=== PATIENT | male | born 1970 | race Caucasian/White ===

== ENCOUNTER 2016-11-06 23:35 | Emergency (ER) | payer SELFPAY | END 2016-11-07 00:59 | disposition left against medical advice (07) | LOC: D.ER 23:35 | DX: F15.10 Other stimulant abuse, uncomplicated (principal); F17.200 Nicotine dependence, unspecified, uncomplicated ==

== ENCOUNTER 2017-01-15 19:08 | Emergency (ER) | payer SELFPAY ==
[2017-01-15 19:40] LABS: APPEARANCE CLEAR (CLEAR); BILIRUBIN NEGATIVE (NEGATIVE); COLOR YELLOW (YELLOW); GLUCOSE NEGATIVE (NEGATIVE); KETONE NEGATIVE (NEGATIVE); LEUKOCYTE ESTERASE NEGATIVE (NEGATIVE); NITRITE NEGATIVE (NEGATIVE); PROTEIN NEGATIVE (NEGATIVE); SPECIFIC GRAVITY 1.025 (1.005-1.020); UROBILINOGEN NORMAL (NORMAL)
[2017-01-15 21:27] LABS: UDS - AMPHET POSITIVE QUAL (NEGATIVE); UDS - BARB NEGATIVE QUAL (NEGATIVE); UDS - BENZO NEGATIVE QUAL (NEGATIVE); UDS - COCAINE NEGATIVE QUAL (NEGATIVE); UDS - METH NEGATIVE QUAL (NEGATIVE); UDS - OPIATE NEGATIVE QUAL (NEGATIVE); UDS - PCP NEGATIVE QUAL (NEGATIVE); UDS - THC NEGATIVE QUAL (NEGATIVE)
== END 2017-01-15 21:29 | disposition home or self-care (01) ==
LOC: D.LABREF 19:08 → D.ER 19:08
PROVIDERS: Emergency Medicine; Nurse Practitioner Acute Care
DX: F11.10 Opioid abuse, uncomplicated (principal); F15.10 Other stimulant abuse, uncomplicated; F17.200 Nicotine dependence, unspecified, uncomplicated

== ENCOUNTER 2017-02-01 20:08 | Observation (INO) | payer SELFPAY ==
[2017-02-01 22:03] LABS: APPEARANCE CLEAR (CLEAR); BILIRUBIN NEGATIVE (NEGATIVE); COLOR YELLOW (YELLOW); GLUCOSE NEGATIVE (NEGATIVE); KETONE NEGATIVE (NEGATIVE); NITRITE NEGATIVE (NEGATIVE); PROTEIN NEGATIVE (NEGATIVE); UROBILINOGEN NORMAL (NORMAL)
[2017-02-01 22:40] LABS: BASOPHILS 0.3 % (0-2); EOSINOPHILS 3.5 % (0-7); HEMATOCRIT 44.5 % (42.0-54.0); HEMOGLOBIN 14.9 g/dL (13.5-17.5); IMMATURE GRANULOCYTES 1.7 % (0-5); LYMPHOCYTES 33.5 % (15-50); MCH 30.4 pg (26.0-34.0); MCHC 33.5 g/dL (31.0-37.0); MCV 90.8 fL (80.0-100.0); MEAN PLATELET VOLUME 8.8 fL (7.4-10.4); MONOCYTES 10.1 % (2-11); NEUTROPHILS 50.9 % (40-80); PLATELET COUNT 380 10x3/uL (130-400); RDW 14.4 % (11.5-14.5); WBC 7.1 10x3/uL (4.8-10.8)
--- NOTE | 2017-02-01 22:40 | NUR ---
PT ARRIVED TO ROOM 212 FROM ER PER WHEELCHAIR. ALERT/ORIENTED. ACCOMPANIED BY GIRLFRIEND. PIV TO [facility] SALINE LOCKED. ADMISSION ASSESSMENT AND HISTORY COMPLETED. NO CURRENT HOME MEDS, HAS BEEN ON A DETOX PROGRAM AT [facility] FOR THE LAST 4 DAYS AND STATES HE HAS BEEN HAVING SEIZURES FOR OVER A MONTH. SEIZURE PRECAUTIONS IN PLACE. SIDERAILS PADDED. PLAN OF CARE INITIATED.
[2017-02-01 22:56] LABS: ALBUMIN 3.5 g/dL (3.4-5.0); BILIRUBIN - TOTAL 0.1 mg/dL (0.2-1.3); CALCIUM 8.9 mg/dL (8.5-10.1); CREATININE - SERUM 1.4 mg/dL (0.6-1.3); MAGNESIUM - SERUM 1.8 mg/dL (1.8-2.4); PROTEIN - SERUM 7.2 g/dL (6.4-8.2)
[2017-02-01 23:08] LABS: APTT 27.3 SECONDS (22.8-39.4); INR 0.85 (0.85-1.17); PROTIME 11.4 SECONDS (11.6-15.0)
[2017-02-02] VITALS: BP 138/89
--- NOTE | 2017-02-02 02:07 | NUR ---
PT'S GIRLFRIEND AT NURSES STATION, THEN DOWN TO PATIENT'S @ 0110 WHERE SHE IMMEDIATELY REAPPEARED IN THE HALLWAY YELLING "HE JUST HAD A SEIZURE!" WENT TO PT ROOM AND PT IS FULLY AWAKE AND STRETCHED OUT HIS RIGHT ARM WHERE HIS IV IS LOCATED AND SAID "SHOULDN'T YOU GIVE ME ATIVAN NOW?". NO EVIDENCE OF POST ICTAL PRESENT. PT IS ALERT/ORIENTED AND JUST WANTING TO KNOW WHERE HIS ATIVAN IS AT. NURSE DOWN TO GET A DOSE OF ATIVAN AND UPON RETURNING TO ROOM, PT IS UP IN BATHROOM. GAIT IS STEADY AND UNASSISTED. HE APPEARS TO HAVE NO LINGERING EFFECTS FROM HIS REPORTED SEIZURE. PT READYING SELF FOR SLEEP, TELLS NURSE IF A "BALD HEADED CAROL COMES LOOKING FOR ME, JUST SEND HIM MY WAY". WHEN NURSE ATTEMPTED TO ASK HIM QUESTIONS ON WHY HE WOULD MAKE THAT STATEMENT, HIS GIRLFRIEND TOLD HIM TO BE QUIET AND TO STOP TALKING. PT JUST LAUGHED. WILL MONITOR.
[2017-02-02 02:52] VITALS: BP 138/89; BMI 30.2
--- NOTE | 2017-02-02 03:00 | NUR ---
PT OUT WALKING IN THE HALLWAY. ALERT/ORIENTED. GAIT STEADY AND UNASSISTED. REQUESTED TO KNOW WHERE VENDING MACHING LOCATED. DIRECTED PT TO MACHINES. PT THEN BACK TO ROOM. WILL MONITOR.
[2017-02-02 04:00] VITALS: BP 134/79
--- NOTE | 2017-02-02 04:03 | NUR ---
PT'S GIRLFRIEND, CHALO LINARES, UP TO NURSES STATION TELLING NURSE PT IS AGITATED AND "ALL OVER THE BED" AND WASN'T NURSE SUPPOSED TO BE STARTING A "DRIP" ON HIM. EXPLAINED THAT THERE WAS NOT ANY ORDERS FOR PT TO BE ON A DRIP AND THAT PT HAD BEEN UP AND WALKING IN THE HALLWAY LESS THAN AN HOUR AGO WITH NO ISSUES. GIRLFRIEND IMMEDIATELY SAID "WELL CAN HE HAVE ICECREAM THEN?". GAVE HER 2 CUPS OF ICECREAM AND SHE RETURNED TO ROOM.
--- NOTE | 2017-02-02 07:15 | NUR ---
RECIEVED REPORT ON PATIENT, PATIENT IS ALERT AND ORIENTED AT THIS TIME. PATIENT HAS A R FA IV THAT IS SL AT THIS TIME. PATIENT IS ON TELEMETRY AND IS SR WITH A RATE OF 87. PATIENT GIRLFRIEND IS AT BEDSIDE. PATIENT IS ON SZ PRECAUTIONS, BEDRAILS ARE PADDED, BED LOW AND LOCKED, CALL LIGHT IN REACH. PATIENT IS AGGITATED WANTING TO GO OUTSIDE TO SMOKE, [employer] TE[employer]ER IS AT BEDSIDE EXPLAINING TO PATIENT HE CAN NOT LEAVE THE FLOOR, SINCE HE IS ON SIEZURE PRECAUTIONS. I HAVE PAGED MARKEL KHANNA FOR NICOTINE PATCH. CPOC
--- NOTE | 2017-02-02 07:55 | NUR ---
PT AMBULATING AROUND UNIT BUT ALSO LOOKING FOR ELEVATOR WITH CIGARETTES IN HAND LOOKING TO GO OUTSIDE TO SMOKE. PT AMULATING BACK TO ROOM. EXPLAINED TO PT AND GIRLFRIEND THAT HE IS UNDER SEIZURE PRECAUTIONS AND CANNOT LEAVE THE FLOOR AND PREFERABLY THE ROOM FOR HIS SAFETY. BOTH UNDERSATND BUT PT IS NONCOMPLIANT AND WANTING TO SMOKE. HE WAS OFFERED A NICOTINE PATCH BUT REFUSES IT. HE IS ALSO WANTING TO TRANSFER TO [facility]. PROCEDURE OF TRANSFER WAS EXPLAINED TO PT. PT STATES HE DID [facility] 5 DAYS AGO. AGAIN, THE IMPORTANCE OF STAYING IN THE ROOM AND THE UNIT WAS STRESSED TO BOTH PT AND FAMILY.
[2017-02-02 08:00] VITALS: BP 114/67
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
--- NOTE | 2017-02-02 08:45 | NUR ---
patient refused to take his medications, ripped out his iv stated he was going to leave, informed patient he would have to sign an AMA form and he refused stated "i am going to go smoke a cigarette and i might come shawna, im not signing shit" marianne rey batch unit treater aware. will notify dr. ivy
--- NOTE | 2017-02-02 09:26 | NUR ---
patient has still not showed back up, patient has left AMA. Dr Rodriguez notified.
--- NOTE | 2017-02-02 12:28 | NUR ---
SPOKE WITH MARIO MAGANA AT [facility] TO LET HER KNOW THE PATIENT LEFT AMA AND THAT WE WERE UNSURE IF HE WOULD RETURN TO THEIR FACILITY OR NOT. SHE REQUESTED SOMETHING TO SHOW THAT HE LEFT AMA. NOTE SENT TO HER.
== END 2017-02-02 09:00 | disposition left against medical advice (07) ==
LOC: D.ER 20:08 → D.M2 21:20 → OBSVTIME 21:20 → D.M2 02-02 09:00
PROVIDERS: Physician Assistant Medical; ADMIT Family Medicine
DX: K92.2 Gastrointestinal hemorrhage, unspecified (principal); F11.23 Opioid dependence with withdrawal; R56.9 Unspecified convulsions; R10.9 Unspecified abdominal pain; Z72.0 Tobacco use; F12.90 Cannabis use, unspecified, uncomplicated